=== PATIENT | male | born 2000 | race Caucasian/White ===

== ENCOUNTER 2023-06-11 00:53 | Emergency (ER) | payer SELFPAY ==
[2023-06-11] MEDS ORDERED: Ondansetron PF 4 MG/2 ML Vial ONE (01:25)
== END 2023-06-11 02:22 | disposition home or self-care (01) ==
LOC: EEVIPCON 00:53 → CSHERS 00:53
DX: T40.711A Poisoning by cannabis, accidental (unintentional), initial encounter (principal); F19.929 Other psychoactive substance use, unspecified with intoxication, unspecified
CPT/HCPCS: 96361; 96374; J2405